=== PATIENT | female | born 1980 | race Caucasian/White ===

== ENCOUNTER 2016-11-28 09:34 | Inpatient (IN) | payer MEDICAID ==
[~2016-11-28] VITALS: Ht 157.5 cm; Wt 93.0 kg
[2016-11-28] VITALS (14 sets, daily range): BP systolic 101–128; BP diastolic 52–72; PULSE 55–76; RESP 1–20
[~2016-11-28 09:34] MED LIST: FERR27TA PO; PREN1TAB49 PO
[2016-11-28] MEDS ORDERED: AMP500 PO (11:12)
[2016-11-28] MEDS: LACTATED RINGER'S 1,000 ML IV SCH (11:28)
[2016-11-28] MEDS ORDERED: CARBOPROST 250 MCG INJ IM PRN ×2 (11:30→18:30)
[2016-11-28] MEDS ORDERED: OXYTOCIN 30 UNITS/LR 500 ML IV SCH (11:30)
[2016-11-28] MEDS ORDERED: CEFAZOLIN 2 GM/50 ML (PMX) 50 ML IV SCH (11:30)
[2016-11-28] MEDS ORDERED: METHYLERGONOVINE 0.2 MG INJ IM PRN ×2 (11:30→18:30)
[2016-11-28] MEDS ORDERED: OXYTOCIN 30 UNITS/LR 500 ML IV PRN ×2 (11:30→18:30)
[2016-11-28] MEDS ORDERED: MISOPROSTOL 200 MCG TAB PR PRN ×2 (11:30→18:30)
[2016-11-28 11:48] LABS: INR 0.95; PROTIME 12.7 Sec (12.2-14.2)
[2016-11-28 11:49] LABS: PARTIAL THROMBOPLASTIN TIME 26.9 Sec (25.0-35.0)
[2016-11-28 12:13] LABS: BASOPHILS % 0.3 % (0.0-2.0); EOSINOPHILS # 0.1 10^3/ul (0.0-0.5); EOSINOPHILS % 0.6 % (0.0-7.0); HEMATOCRIT 38.2 % (37.0-47.0); LYMPHOCYTES # 2.1 10^3/ul (0.8-2.9); LYMPHOCYTES % 22.6 % (15.0-51.0); MEAN CORPUSCULAR HEMOGLOBIN 31.3 pg (29.0-33.0); MEAN PLATELET VOLUME 11.4 fl (7.4-10.4); MONOCYTE # 0.4 10^3/ul (0.3-0.9); MONOCYTES % 4.5 % (0.0-11.0); NEUTROPHILS % 71.5 % (39.0-77.0); PLATELET COUNT 210 10^3/UL (140-415); RED BLOOD COUNT 4.15 10^6/ul (4.20-5.40); RED CELL DISTRIBUTION WIDTH 13.1 % (11.5-14.5); WHITE BLOOD COUNT 9.3 10^3/ul (4.8-10.8)
[2016-11-28] MEDS ORDERED: morphine SULFATE/PF (10 MG/10 ML) INJ ONE (13:08)
[2016-11-28] MEDS ORDERED: FENTAnyl 50 MCG/ML VIAL ONE (13:08)
[2016-11-28] MEDS ORDERED: PHENYLephrine (100 MCG/ML) 5ML SYG ONE (13:19)
[2016-11-28] MEDS ORDERED: DEXAMETHASONE 4 MG/ML 1 ML INJ ONE (13:20)
[2016-11-28] MEDS ORDERED: ONDANSETRON 4 MG INJ ONE (13:20)
[2016-11-28] MEDS ORDERED: TRIMETHOBENZAMIDE 100 MG/ML VIAL IM PRN (14:00)
[2016-11-28] MEDS ORDERED: DIPHENHYDRAMINE 50 MG INJ IV PRN (14:00)
[2016-11-28] MEDS ORDERED: NALOXONE (0.4 MG/ML) INJ IV PRN (14:00)
[2016-11-28] MEDS ORDERED: KETOROLAC 30 MG INJ IV PRN (14:00)
[2016-11-28] MEDS ORDERED: NALBUPHINE HCL (10 MG/1 ML) INJ IV PRN (14:00)
[2016-11-28] MEDS ORDERED: HYDROmorphONE 1 MG/ML SYG IV PRN ×2 (14:00)
[2016-11-28] MEDS ORDERED: ZOLPIDEM 5 MG TAB PO PRN (14:00)
[2016-11-28] MEDS ORDERED: ONDANSETRON 4 MG INJ IV PRN (14:00)
--- NOTE | 2016-11-28 14:27 | OPR ---
Operative Report Planned Procedure Free Text/Dictation 36 years old female history of 2 previous admitted at 39 weeks gestation for repeat Procedure date Nov 28, 2016 Procedure(s) Repeat C section Performed by: MALA MODI MD Assisting provider: RADHA JOY MD Anesthesiologist: JONH METZ DO Pre-procedure diagnosis 39 week 2 previous Anesthesia Type: spinal Procedure Description Under satisfactory [spine] anesthesia, the patient was prepped and draped and placed in a supine position, tilted to the left. Pfannenstiel incision was made , carried through the subcutaneous tissue. Bleeders brought under control with electrocautery. Fascia incised to the length of the incision. Rectus muscles from the fascia, divided midline. Peritoneum exposed, entered through a transverse incision. Exploration of abdomen revealed gravid uterus at term normal-appearing tubes and ovaries. Bladder flap was developed. Transverse incision was made in the lower segment of the uterus which was extremely thinned out. Amniotic sac ruptured. Clear [] amniotic fluid noted. Live baby boy was delivered from unengaged L OT vertex presentation [] Nasal oropharyngeal suction was performed. baby handed to the team for immediate attention patient received 20 units of Pitocin. The placenta was delivered manually intact. Uterine cavity was cleaned with wet sponge and drainage established. Uterus closed in 2 layers using [Monocryl number] in continuous fashion. Peritoneal cavity irrigated with warm saline. Sponge, needle and instrument count reported to be correct. Abdominal peritoneum closed with2 0 chromic catgut [] continuously. Rectus muscle approximated with several interrupted 2-0 chromic catgut []. Fascia closed with [] #1 PDS tenderness tissue approximated with2 /0 chromic catgut skin closed with NSORB. Estimated blood loss [600]mL. Urine bag contained [200]mL of clear urine patient tolerated procedure well transferred to recovery room in good condition Post-Procedure Findings: Live Baby BOY 8/9 Specimen removed: No Complications: None Pt Condition post procedure: stable Physician Certification I, the undersigned physician, hereby certify that I have discussed the procedure described in this consent form with this patient (or the patient's legal sales representative womens health), including: * The risk and benefits of the procedure; * Any adverse reactions that may reasonably be expected to occur; * Any alternative efficacious methods of treatment which may be medically viable ; * The potential problems that may occur during recuperation; * Potential for blood transfusion and associated risks/benefits; and * Any research or economic interest I may have regarding this treatment. I further certify that the patient/legally responsible person was encouraged to ask question and that all questions were answered. MALA MODI MD Nov 28, 2016 14:27
--- NOTE | 2016-11-28 14:35 | HP ---
Date/Time of Note Date/Time of Note DATE: 11/28/16 TIME: 14:27 OB - History Hx of Present Free Text/Dictation 36 years old female 3 para 2 history of 2 previous section with a EDC December 05, 2016 admitted to [facility] to undergo Patient has been under the care of the [facility] and her has not been complicated with gestational diabetes - induced hypertension [employer] history [place] at age 11 history of 2 previous section no other surgery or hospitalization for any other call or medical condition Allergy denies allergy to any known Social habit denies illicit drug 12 system within normal Cecal exam Head ears and throat Neck supple no thyromegaly Clear to P&A Normal sinus rhythm no murmur Abdomen fundal height 37 cm from symphysis pubis heart rate category 1 Pelvic examination deferred Remedies no edema no varicosities Pression intrauterine at 39 weeks gestation 2 previous section undergoing a repeat for the third time, is been counseled guarding complication of the surgery including bowel bladder injury wound infection and hematoma she is willing to go ahead with the procedure Estimated Due Date: Nov 04, 2016 : 3 Para: 2 Care: Good Care Ultrasounds: Normal mid trimester US Obstetrical Complications: None Medical Complications: None Past Family/Social History * Past Medical, Surgical, Family and Obstetric Histories reviewed from chart. Rubella: immune RPR/VDRL: Negative GBS Status: Negative HBsAG: Negative OB Admission Exam Vital Signs Vital Signs Vital Signs Date Time Temp Pulse Resp B/P Pulse Ox O2 Delivery O2 Flow Rate FiO2 11/28/16 11:14 98.0 76 18 117/65 Room Air Physical Exam HEENT: WNL Heart: Rhythm Normal Lungs: Clear, Equal Abdomen: WNL Extremities: Normal Reflexes: Normal Heart Rate: 130's Accelerations: Accelerations Present Last 72 hours Lab Results CBC & BMP 11/28/16 11:30 MALA MODI MD Nov 28, 2016 14:35
[2016-11-28] MEDS ORDERED: CEFAZOLIN 1 GM/50 ML (PMX) 50 ML IVPB SCH (18:30)
[2016-11-28] MEDS ORDERED: OXYCODONE/ACETAMINOPHEN (5/325) TAB PO PRN (18:30)
[2016-11-28] MEDS ORDERED: LANOLIN 7 GM TUBE TOP PRN (18:30)
[2016-11-28] MEDS ORDERED: HYDROCODONE/APAP (5/325) TAB PO PRN ×2 (18:30)
[2016-11-28] MEDS: OXYTOCIN 30 UNITS/LR 500 ML IV SCH ×2 (19:12→23:40)
[2016-11-29] VITALS: BP 104/55; PULSE 69; RESP 20
[2016-11-29] MEDS: OXYTOCIN 30 UNITS/LR 500 ML IV SCH ×4 (02:12→14:12)
[2016-11-29] MEDS: LACTATED RINGER'S 1,000 ML IV SCH ×2 (03:37→11:34)
[2016-11-29 04:00] VITALS: BP 103/51; PULSE 74; RESP 20
[2016-11-29] MEDS: IBUPROFEN 600 MG TAB PO SCH ×4 (06:00→17:32)
[2016-11-29 08:00] VITALS: BP 100/53; RESP 18
[2016-11-29] MEDS: SENNA/DOCUSATE NA (8.6MG/50MG) TAB PO SCH ×2 (09:23→22:24)
[2016-11-29 10:15] LABS: BASOPHILS % 0.3 % (0.0-2.0); EOSINOPHILS % 0.4 % (0.0-7.0); HEMATOCRIT 30.5 % (37.0-47.0); HEMOGLOBIN 10.1 g/dl (12.0-16.0); LYMPHOCYTES # 2.5 10^3/ul (0.8-2.9); LYMPHOCYTES % 23.6 % (15.0-51.0); MEAN CORPUSCULAR HEMOGLOBIN 30.6 pg (29.0-33.0); MEAN CORPUSCULAR HGB CONC 33.1 g/dl (32.0-37.0); MEAN CORPUSCULAR VOLUME 92.4 fl (82.0-101.0); MEAN PLATELET VOLUME 11.2 fl (7.4-10.4); MONOCYTE # 0.6 10^3/ul (0.3-0.9); MONOCYTES % 5.2 % (0.0-11.0); NEUTROPHILS % 69.8 % (39.0-77.0); PLATELET COUNT 177 10^3/UL (140-415); RED CELL DISTRIBUTION WIDTH 13.2 % (11.5-14.5); WHITE BLOOD COUNT 10.6 10^3/ul (4.8-10.8)
--- NOTE | 2016-11-29 10:18 | PN ---
Date/Time of Note Date/Time of Note DATE: 11/29/16 TIME: 10:17 OB Subjective Subjective Subjective Post day 1 Afebrile Vital signs are stable Abdomen soft Lochia normal Good bowel sounds Extremities normal Ambulation is recommended Laboratory Tests Test 11/28/16 10:30 11/28/16 11:30 11/29/16 09:27 Hepatitis B Surface Antigen NEGATIVE White Blood Count 9.310^3/ul Pending Red Blood Count 4.1510^6/ul Pending Hemoglobin 13.0g/dl Pending Hematocrit 38.2% Pending Mean Corpuscular Volume 92.0fl Pending Mean Corpuscular Hemoglobin 31.3pg Pending Mean Corpuscular Hemoglobin Concent 34.0g/dl Pending Red Cell Distribution Width 13.1% Pending Platelet Count 40068^3/UL Pending Mean Platelet Volume 11.4fl Pending Neutrophils % 71.5% Lymphocytes % 22.6% Monocytes % 4.5% Eosinophils % 0.6% Basophils % 0.3% Nucleated Red Blood Cells % 0.0/100WBC Neutrophils # (Manual) 6.710^3/ul Lymphocytes # 2.110^3/ul Monocytes # 0.410^3/ul Eosinophils # 0.110^3/ul Basophils # 0.010^3/ul Nucleated Red Blood Cells # 0.010^3/ul Prothrombin Time 12.7Sec Prothrombin Time Ratio 1.0 INR International Normalized Ratio 0.95 Activated Partial Thromboplast Time 26.9Sec Glucose Level 91mg/dl Rapid Plasma Reagin NONREACTIVE Current Medications Medications (Trade) Dose Ordered Sig/Brian Route PRN Reason Start Time Stop Time Status Last Admin Dose Admin Lactated Ringer's 1,000 ml @ 125 mls/hr Q8H IV 11/28/16 11:21 11/29/16 03:37 Cefazolin Sodium/ Dextrose 50 ml @ 100 mls/hr ONCE IV 11/28/16 11:30 11/28/16 18:15 DC Oxytocin/Lactated Ringer's 500 ml @ 125 mls/hr ONCE IV 11/28/16 11:30 11/28/16 14:53 Oxytocin/Lactated Ringer's 500 ml @ 0 mls/hr ONCE PRN IV For Hemorrhage Management 11/28/16 11:30 11/28/16 18:15 DC Methylergonovine Maleate (Methergine) 0.2 mg ONCE PRN IM VAGINAL BLEEDING 11/28/16 11:30 Carboprost Tromethamine (Hemabate) 250 mcg ONCE PRN IM VAGINAL BLEEDING 11/28/16 11:30 11/28/16 18:15 DC Misoprostol (Cytotec) 1,000 mcg ONCE PRN [place] VAGINAL BLEEDING 11/28/16 11:30 Fentanyl (Sublimaze) 100 mcg STK-MED ONCE .ROUTE 11/28/16 13:08 11/28/16 13:09 DC Morphine Sulfate (Duramorph) 10 mg STK-MED ONCE .ROUTE 11/28/16 13:08 11/28/16 13:09 DC Phenylephrine HCl (Devendra-Synephrine Inj Syg) 500 mcg STK-MED ONCE .ROUTE 11/28/16 13:19 11/28/16 13:20 DC Ondansetron HCl (Zofran Inj) 4 mg STK-MED ONCE .ROUTE 11/28/16 13:20 11/28/16 13:21 DC Dexamethasone (Decadron) 4 mg STK-MED ONCE .ROUTE 11/28/16 13:20 11/28/16 13:21 DC Naloxone HCl (Narcan) 0.1 mg Q2M PRN IV FOR RESP RATE 8 OR LESS 11/28/16 14:00 11/29/16 13:59 Ketorolac Tromethamine (Toradol) 30 mg Q6H PRN IV PAIN 11/28/16 14:00 11/29/16 13:59 11/29/16 09:24 Hydromorphone HCl (Dilaudid) 0.2 mg Q3H PRN IV PAIN LEVEL 1-5 11/28/16 14:00 11/29/16 13:59 Hydromorphone HCl (Dilaudid) 0.4 mg Q3H PRN IV PAIN LEVEL 6-10 11/28/16 14:00 11/29/16 13:59 Diphenhydramine HCl (Benadryl) 25 mg Q6H PRN IV ITCHING 11/28/16 14:00 11/29/16 13:59 Nalbuphine HCl (Nubain) 5 mg ONCE PRN IV ITCHING 11/28/16 14:00 11/29/16 13:59 Ondansetron HCl (Zofran Inj) 4 mg Q6H PRN IV NAUSEA AND/OR VOMITING 11/28/16 14:00 11/29/16 13:59 Trimethobenzamide HCl (Tigan) 200 mg Q6H PRN IM NAUSEA AND/OR VOMITING 11/28/16 14:00 11/29/16 13:59 Zolpidem Tartrate (Ambien) 5 mg HS MAY REPEAT X 1 PRN PO INSOMNIA 11/28/16 14:00 11/29/16 13:59 Acetaminophen/ Hydrocodone Bitart ([place] (5/325)) 1 tab Q4H PRN PO PAIN LEVEL 4-6 11/28/16 18:30 Acetaminophen/ Hydrocodone Bitart ([place] (5/325)) 2 tab Q4H PRN PO PAIN LEVEL 7-10 11/28/16 18:30 Oxycodone/ Acetaminophen (Percocet (5/ 325)) 1 tab Q4H PRN PO PAIN LEVEL 4-6 11/28/16 18:30 Oxycodone/ Acetaminophen (Percocet (5/ 325)) 2 tab Q4H PRN PO PAIN LEVEL 7-10 11/28/16 18:30 Ibuprofen (Motrin) 600 mg Q6 PO 11/29/16 00:00 Simethicone (Mylicon) 160 mg Q8H PRN PO DISTENSION/GAS/BLOATING 11/28/16 18:30 Senna/Docusate Sodium (Senokot-S) 1 tab BID PO 11/29/16 09:00 11/29/16 09:23 Lanolin (Wep-T-Jyaxjz) 1 applic BEDSIDE MEDICATION PRN TOP BEDSIDE FOR JEREMY TO NIPPLES 11/28/16 18:30 11/28/16 19:12 Diphtheria/ Tetanus/Acell Pertussis 0.5 ml 0.5 ml ONCE ONCE IM* 12/01/16 09:00 12/01/16 09:01 Oxytocin/Lactated Ringer's 500 ml @ 0 mls/hr ONCE PRN IV For Hemorrhage Management 11/28/16 18:30 Methylergonovine Maleate (Methergine) 0.2 mg ONCE PRN IM VAGINAL BLEEDING 11/28/16 18:30 Carboprost Tromethamine (Hemabate) 250 mcg ONCE PRN IM VAGINAL BLEEDING 11/28/16 18:30 Misoprostol 1000 mcg 1,000 mcg ONCE PRN [place] VAGINAL BLEEDING 11/28/16 18:30 Cefazolin Sodium 50 ml @ 100 mls/hr ONCE IVPB 11/28/16 18:30 11/28/16 18:59 DC 11/28/16 23:40 Oxytocin/Lactated Ringer's 500 ml @ 125 mls/hr Q4H IV 11/28/16 18:12 11/28/16 23:40 MALA MODI MD Nov 29, 2016 10:18
[2016-11-29 12:00] VITALS: BP 124/65; PULSE 74; RESP 18
[2016-11-29] MEDS: OXYCODONE/ACETAMINOPHEN (5/325) TAB PO PRN ×2 (15:32→22:25)
[2016-11-29 16:00] VITALS: BP 124/73; PULSE 77; RESP 18
[2016-11-29 20:00] VITALS: BP 123/84; PULSE 77; RESP 18
[2016-11-30] MEDS: IBUPROFEN 600 MG TAB PO SCH ×5 (00:11→23:28)
[2016-11-30 04:10] VITALS: BP 121/79; PULSE 72; RESP 19
[2016-11-30 08:00] VITALS: BP 118/66; PULSE 75; RESP 17
--- NOTE | 2016-11-30 09:59 | PN ---
Date/Time of Note Date/Time of Note DATE: 11/30/16 TIME: 09:56 OB Subjective Subjective Subjective Afebrile vital signs are stable Abdomen soft, incision dry, bowel sounds present, no bowel movement Lochia moderate Extremities normal Enema recommended OB Assessment/Plan Plan: Expectant Management MALA MODI MD Nov 30, 2016 09:59
[2016-11-30] MEDS: OXYCODONE/ACETAMINOPHEN (5/325) TAB PO PRN ×2 (10:13→15:50)
[2016-11-30] MEDS: SENNA/DOCUSATE NA (8.6MG/50MG) TAB PO SCH ×2 (10:13→20:05)
[2016-11-30] MEDS ORDERED: NA PHOSPHATE/BIPHOS 133 ML ENEMA PR ONE (11:00)
[2016-11-30 16:00] VITALS: BP 105/61; PULSE 67; RESP 17
[2016-11-30 20:00] VITALS: BP 110/65; PULSE 69; RESP 17
[2016-12-01] MEDS: OXYCODONE/ACETAMINOPHEN (5/325) TAB PO PRN (01:04)
[2016-12-01 04:00] VITALS: BP 110/71; PULSE 68; RESP 19
[2016-12-01] MEDS: IBUPROFEN 600 MG TAB PO SCH ×2 (06:18→11:41)
[2016-12-01 08:00] VITALS: BP 109/57; PULSE 66; RESP 18
[2016-12-01] MEDS: SENNA/DOCUSATE NA (8.6MG/50MG) TAB PO SCH (08:56)
[2016-12-01] MEDS ORDERED: DIPHTH/TET/ACEL PERTUSS (ADULT) 0.5 ML VIAL IM* ONE (09:00)
--- NOTE | 2016-12-01 13:07 | PD.PPDC ---
CRITICAL CARE CNS Discharge Instruction Condition Patient Condition: Good Diet Diet: Resume Regular Diet Wound/Drain Care Instructions Wound/Drain Care Instructions: Remove Steri Strips in 1 week Wash with soap and water Keep clean and dry Follow-up Follow-up with Physician: 1, Week/Weeks Return to clinic for OVEN HEATER Instructions: Fever greater than 101 Chills Worsening abdominal pain Excessive Vaginal Bleeding More than 2 pads per hour Unable to tolerate diet OB Instructions: Breast Tenderness Depression Blurried Vision Headache Surgical Instructions: Incisional Drainage Incisional Redness MALA MODI MD Dec 01, 2016 13:07
--- NOTE | 2016-12-01 13:11 | DS ---
Date/Time of Note Date/Time of Note DATE: 12/01/16 TIME: 13:08 Discharge Summary Admission/Discharge Info Admit Date/Time Nov 28, 2016 at 09:34 Discharge Date/Time December 01, 2069 Discharge Diagnosis Post repeat date 3 Patient Condition: Good Procedures Repeat Hx of Present Illness Term history of previous section Hospital Course Satisfactory recovery uneventful Home Meds Reported Medications Ampicillin* (Ampicillin*) 500 Mg Cap, 500 MG PO Q6, CAP 11/28/16 Vits W-Ca,Fe,Fa(<1MG) () 1 Tab Tablet, 1 TAB PO 06/30/11 Discontinued Reported Medications Ferrous Sulfate (Iron) 1 Tab Tablet, 1 TAB PO 06/30/11 Follow-up Plan Post instructions given recommended appointment in 1 week Primary Care Provider [facility] Time spent on discharge: < 30 minutes MALA MODI MD Dec 01, 2016 13:11
== END 2016-12-01 15:00 | disposition home or self-care (01) | DRG 766 ==
LOC: L-D 09:34 → PP1 18:05
PROVIDERS: ADMIT Obstetrics & Gynecology; ATTEND Obstetrics & Gynecology
PROC: 10D00Z1 Extraction of Products of Conception, Low, Open Approach (ICD-10-PCS; principal; 2016-11-28 12:30)
DX: O34.211 Maternal care for low transverse scar from previous cesarean delivery (principal); Z37.0 Single live birth; Z3A.39 39 weeks gestation of pregnancy
CPT/HCPCS: 82947; 85025; 85610; 85730; 86592; 86850; 86900; 86901; 87340; 90715; 94760; 99464; J0690; J1100; J1885; J2274; J2370; J2405; J2590; J3010; J7120

== ENCOUNTER 2017-01-04 10:34 | Emergency (ER) | END 2017-01-04 13:39 | disposition home or self-care (01) | DX: Z48.01 Encounter for change or removal of surgical wound dressing (principal) ==